=== PATIENT | female | born 1960 | race Caucasian/White ===

== ENCOUNTER 2023-10-17 08:45 | Outpatient (CLI) | payer BC, SELFPAY | END 2023-10-17 08:46 | disposition home or self-care (01) | LOC: NFLDREF 10-18 13:02 | PROVIDERS: PCP Family Medicine; Referring Provider Family Medicine; Visit Provider Nurse Practitioner | DX: R30.0 Dysuria (principal); N30.00 Acute cystitis without hematuria | CPT/HCPCS: 87086; 87186 ==

== ENCOUNTER 2025-02-17 16:20 | Outpatient (CLI) | payer BC, SELFPAY | END 2025-02-17 16:21 | disposition home or self-care (01) | LOC: NFLDREF 02-20 15:47 | PROVIDERS: PCP Family Medicine; Referring Provider Family Medicine; Visit Provider Registered Nurse | DX: N30.90 Cystitis, unspecified without hematuria (principal) | CPT/HCPCS: 87086 ==

== ENCOUNTER 2025-03-04 11:02 | Outpatient (CLI) | payer BC, SELFPAY | END 2025-03-04 11:03 | disposition home or self-care (01) | PROVIDERS: PCP Family Medicine; Visit Provider Nurse Practitioner Family | DX: Z00.00 Encounter for general adult medical examination without abnormal findings (principal); R07.89 Other chest pain; M85.80 Other specified disorders of bone density and structure, unspecified site; Z13.21 Encounter for screening for nutritional disorder; Z13.0 Encounter for screening for diseases of the blood and blood-forming organs and certain disorders involving the immune mechanism; Z13.6 Encounter for screening for cardiovascular disorders | CPT/HCPCS: 80053; 80061; 82306; 82728; 83540; 84484; 85025 ==

== ENCOUNTER 2025-08-12 13:10 | Outpatient (CLI) | payer BC, SELFPAY | END 2025-08-12 13:11 | disposition home or self-care (01) | LOC: NFLDUCREF 13:10 | PROVIDERS: PCP Family Medicine; Visit Provider Physician Assistant | DX: R30.0 Dysuria (principal) | CPT/HCPCS: 87086 ==

== ENCOUNTER 2025-08-28 11:23 | Outpatient (CLI) | payer BC, SELFPAY | END 2025-08-28 11:24 | disposition home or self-care (01) | PROVIDERS: PCP Family Medicine; Visit Provider Nurse Practitioner Family | DX: Z13.0 Encounter for screening for diseases of the blood and blood-forming organs and certain disorders involving the immune mechanism (principal); E61.1 Iron deficiency; G25.81 Restless legs syndrome | CPT/HCPCS: 81001; 83540; 83550; 85025; 85651; 86140; 87086 ==